=== PATIENT | female | born 1985 | race Caucasian/White ===

== ENCOUNTER 2016-10-26 01:00 | Emergency (ER) | payer MEDICAID ==
--- NOTE | 2016-10-26 01:30 | Emergency Department Record ---
History of Present Illness - General Chief Complaint: Cough Stated Complaint: CONGESTION, THINKS SHE HAS PNEUMONIA AGAIN Time Seen by Provider: 10/26/16 01:21 Source: Patient Mode of Arrival: Ambulatory Limitations: No limitations - History of Present Illness Initial Comments: 31 yo female presents with cough, sinus congestion, sore throat since Friday. She has green sinus drainage with pressure in the nasal and facial area. She has a sore throat but she is able to swallow, drink, and eat. She has a cough that is productive with green sputum. No blood. No fevers. No rash. No leg swelling. She has similar symptoms around time. No history of asthma. MD Complaint: Cough, Nasal congestion, Rhinorrhea, Sinus pain, Sore throat Onset/Timin -: Days(s) Severity: Mild Quality: Aching Consistency: Other Improves With: Nothing Worsens With: Other (coughing) Context: Sick contacts (contact with a family member with pneumonia) Associated Symptoms: Cough, Ear pain, Rhinorrhea, Sore throat Treatments Prior to Arrival: None - Related Data Home Medications Medication Instructions Recorded Confirmed Last Taken Albuterol Sulfate 2 mg INH Q6HR PRN 03/17/14 10/26/16 06/20/14 15:00 Montelukast Sodium [Singulair] 10 mg PO DAILY 03/17/14 10/26/16 06/20/14 10:00 Paroxetine HCl [Paroxetine HCl] 1 tab PO DAILY 03/17/14 10/26/16 06/20/14 10:00 Tiotropium [place] [Spiriva] 2 puff INH BID 03/17/14 10/26/16 06/20/14 10:00 Albuterol Sulfate 0.083% [Neb] 2.5 mg IH Q4HR PRN 08/17/14 10/26/16 Unknown Glycopyrrolate [Robinul] 1 mg PO DAILY 08/17/14 10/26/16 Unknown Mirtazapine [Remeron] 30 mg PO DAILY 04/13/15 10/26/16 Unknown Sucralfate [Carafate] 1 gm PO DAILY 04/13/15 10/26/16 Unknown Dicyclomine HCl [Bentyl] 10 mg PO DAILY 04/27/15 10/26/16 Unknown Ibuprofen [Motrin 600Mg] 600 mg PO QHS 11/13/15 10/26/16 Unknown Ropinirole HCl [Ropinirole HCl] 0.25 mg PO DAILY 11/13/15 10/26/16 Unknown Previous Rx's Medication Instructions Recorded Ondansetron [Zofran Odt] 4 mg PO NOW #10 tab.rapdis 12/21/14 Cetirizine HCl [Zyrtec] 10 mg PO DAILY #30 tab.chew 07/08/15 Prednisone [Prednisone 20Mg] 20 mg PO BID #10 tab 10/14/15 Ibuprofen [Motrin Liq] 400 mg PO Q8H #100 susp 08/12/16 Amoxicillin [Amoxil] 6 ml PO BID #120 ml 10/26/16 Benzonatate [Tessalon Perles] 1 cap PO Q8H PRN #20 cap 10/26/16 Prednisolone 15Mg/5Ml [Prelone 10 ml PO DAILY #50 ml 10/26/16 15Mg/5Ml] Allergies Allergy/AdvReac Type Severity Reaction Status Date / Time azithromycin Allergy HIVES Verified 10/14/15 21:39 [From Zithromax Z-Deven] cephalexin monohydrate Allergy VOMITING Verified 10/24/14 21:03 [From Keflex] Fish Containing Products Allergy HIVES Verified 04/27/15 01:41 latex Allergy RASH Verified 10/24/14 21:03 peanut Allergy ALTERED Verified 10/24/14 21:03 MENTAL STATUS Penicillins Allergy RASH Verified 10/24/14 21:03 shellfish derived Allergy HIVES Verified 04/27/15 01:41 sulfamethoxazole Allergy RASH Verified 10/24/14 21:03 [From Bactrim] trimethoprim [From Bactrim] Allergy RASH Verified 10/24/14 21:03 Travel Screening - Travel/Exposure Within Last 30 Days Have you traveled within the last 30 days?: No - Travel/Exposure Within Last Year Have you traveled outside the [place] in the last year?: No - Additonal Travel Details Have you been exposed to anyone with a communicable illness?: No - Travel Symptoms Symptom Screening: None Review of Systems Constitutional: Reports: Malaise. Denies: Chills, Fever, Weakness Eyes: Denies: Eye discharge, Eye pain, Photophobia, Vision change ENT: Reports: Congestion, Ear pain, Throat pain Respiratory: Reports: Cough Cardiovascular: Reports: Chest pain (hurts to cough) Endocrine: Denies: Fatigue Gastrointestinal: Denies: Abdominal pain, Diarrhea, Nausea, Vomiting Genitourinary: Denies: Dysuria, Urgency Musculoskeletal: Denies: Arthralgia, Back pain, Joint swelling, Myalgia, Neck pain Skin: Denies: Bruising, Change in color, Rash Neurological: Reports: Headache (sinus pressure) Psychiatric: Denies: Anxiety Hematological/Lymphatic: Denies: Blood Clots, Easy bleeding, Easy bruising, Swollen glands Past Medical History - SOCIAL HISTORY Smoking Status: Never smoker Alcohol Use: None Drug Use: None - RESPIRATORY Hx Respiratory Disorders: Yes Hx Asthma: Yes - CARDIOVASCULAR Hx Cardio Disorders: Yes Hx Irregular Heartbeat: Yes Comment:: heart murmur - NEURO Hx Neuro Disorders: No - GI Hx GI Disorders: Yes Hx Celiac Disease: Yes Hx Reflux: Yes Comment:: cyst on spleen - Hx Genitourinary Disorders: No - ENDOCRINE Hx Endocrine Disorders: No - MUSCULOSKELETAL Hx Musculoskeletal Disorders: Yes Hx Fibromyalgia: Yes Comment:: RLS, had ruptured achilles and was on bedrest just before rafael time. - PSYCH Hx Psych Problems: No - HEMATOLOGY/ONCOLOGY Hx Hematology/Oncology Disorders: No Comment:: issues with red and white cells and platelets. Family Medical History Any Significant Family History?: No Hx Diabetes: Grandparents, Grandparents Physical Exam - General General Appearance: Alert, Oriented x3, Cooperative, No acute distress Limitations: No limitations - Head Head exam: Atraumatic, Normal inspection - Eye Eye exam: negative: Conjunctival injection, Periorbital swelling - ENT ENT exam: Mucous membranes moist, Normal orophraynx. negative: TM's normal bilaterally Ear exam: Normal external inspection. negative: External canal tenderness Nasal Exam: Discharge, Sinus tenderness. negative: Dried blood, Foreign body Mouth exam: Normal external inspection Teeth exam: Normal inspection. negative: Dental caries Throat exam: Tonsillar erythema. negative: Tonsillomegaly, Tonsillar exudate, R peritonsillar mass, L peritonsillar mass - Neck Neck exam: Normal inspection, Full ROM. negative: Tenderness - Respiratory Respiratory exam: Normal lung sounds bilaterally, Chest wall tenderness (tender anterior chest). negative: Accessory muscle use, Decreased breath sounds, Prolonged expiratory, Respiratory distress, Rhonchi, Stridor, Wheezes - Cardiovascular Cardiovascular Exam: Regular rate, Normal rhythm, Normal heart sounds - GI/Abdominal GI/Abdominal exam: negative: Soft, Tenderness - Rectal Rectal exam: Deferred - exam: Deferred - Extremities Extremities exam: Normal inspection, Full ROM, Normal capillary refill. negative: Pedal edema, Tenderness - Back Back exam: Reports: Normal inspection, Full ROM. Denies: Muscle spasm, Rash noted, Tenderness - Neurological Neurological exam: Alert, Normal gait, Oriented X3 - Psychiatric Psychiatric exam: Normal affect, Normal mood. negative: Agitated, Anxious - Skin Skin exam: Dry, Intact, Normal color, Warm. negative: Cyanosis, Diaphoretic, Erythema Course Vital Signs 10/26/16 01:08 Temperature 98.7 F Pulse Rate 95 H Respiratory 20 Rate Blood Pressure 109/63 Pulse Ox 100 - Reevaluation(s) Reevaluation #1: The chest XR was prelim read by me. No acute process. No infiltrate. RX provided for likely sinusitis with her thick nasal drainage and productive cough. No tachycardia or hypoxia. 10/26/16 01:43 Disposition Disposition: Discharge Clinical Impression: Bronchitis Disposition: Home, Self-Care Condition: (1) Good Instructions: Acute Bronchitis (ED) Additional Instructions: Call your doctor first of the week Return if worse or any new concern Use a humidifier at night. Prescriptions: Amoxicillin [Amoxil] 6 ml PO BID #120 ml Prednisolone 15Mg/5Ml [Prelone 15Mg/5Ml] 10 ml PO DAILY #50 ml Benzonatate [Tessalon Perles] 1 cap PO Q8H PRN #20 cap PRN Reason: Cough Forms: Patient Portal Access Time of Disposition: 01:45
[2016-10-26] MEDS: AMOXICILLIN 400 MG/5 ML ML PO ONE (01:49)
[2016-10-26] MEDS: BENZONATATE 100 MG CAPSULE PO ONE (01:50)
[2016-10-26] MEDS: AMOXICILLIN 500 MG TABLET PO ONE (01:52)
--- NOTE | 2016-10-31 07:12 | RADIOLOGY REPORT ---
EXAM: CHEST, TWO VIEWS HISTORY: PRODUCTIVE COUGH. CONGESTION. TECHNIQUE: Upright PA and lateral views of the chest were obtained. Comparison: Two view chest radiographic examination dated 10/14/15. FINDINGS: The cardiomediastinal silhouette is normal in size and configuration. The pulmonary vasculature is normal in caliber. Minimal biapical lung scarring redemonstrated. No new lung consolidation, costophrenic angle blunting or pneumothorax. There is again suggestion of mild lobulation of the left hemidiaphragm unchanged since 06/20/14. The osseous structures are intact. IMPRESSION: NO RADIOGRAPHIC EVIDENCE OF ACUTE CARDIOPULMONARY DISEASE. JOB NUMBER: [id number] [facility]
== END 2016-10-26 02:01 | disposition home or self-care (01) ==
LOC: ER 01:00
DX: J20.9 Acute bronchitis, unspecified (principal); J02.9 Acute pharyngitis, unspecified
CPT/HCPCS: 71020; 99283

== ENCOUNTER 2017-04-30 23:54 | Emergency (ER) | payer MEDICAID ==
[2017-05-01] MEDS ORDERED: IBUPROFEN 400 MG TABLET PO ONE (00:30)
--- NOTE | 2017-05-01 00:30 | Emergency Department Record ---
History of Present Illness - General Chief complaint: Extremity Problem Stated complaint: THUMB INJURY Time Seen by Provider: 05/01/17 00:25 Source: Patient Mode of Arrival: Ambulatory Limitations: No limitations - History of Present Illness MD Complaint: Extremity pain Onset/Timin -: Hour(s) Location: Left, Other Radiation: None Severity scale (1-10): 8 Consistency: Getting worse Improves with: Medication - Related Data Home Medications Medication Instructions Recorded Confirmed Last Taken Albuterol Sulfate 2 mg INH Q6HR PRN 03/17/14 05/01/17 06/20/14 15:00 Montelukast Sodium [Singulair] 10 mg PO DAILY 03/17/14 05/01/17 06/20/14 10:00 Paroxetine HCl [Paroxetine HCl] 1 tab PO DAILY 03/17/14 05/01/17 06/20/14 10:00 Tiotropium [place] [Spiriva] 2 puff INH BID 03/17/14 05/01/17 06/20/14 10:00 Albuterol Sulfate 0.083% [Neb] 2.5 mg IH Q4HR PRN 08/17/14 05/01/17 Unknown Glycopyrrolate [Robinul] 1 mg PO DAILY 08/17/14 05/01/17 Unknown Mirtazapine [Remeron] 30 mg PO DAILY 04/13/15 05/01/17 Unknown Sucralfate [Carafate] 1 gm PO DAILY 04/13/15 05/01/17 Unknown Dicyclomine HCl [Bentyl] 10 mg PO DAILY 04/27/15 05/01/17 Unknown Ibuprofen [Motrin 600Mg] 600 mg PO QHS 11/13/15 05/01/17 Unknown Ropinirole HCl [Ropinirole HCl] 0.25 mg PO DAILY 11/13/15 05/01/17 Unknown Previous Rx's Medication Instructions Recorded Ondansetron [Zofran Odt] 4 mg PO NOW #10 tab.rapdis 12/21/14 Cetirizine HCl [Zyrtec] 10 mg PO DAILY #30 tab.chew 07/08/15 Prednisone [Prednisone 20Mg] 20 mg PO BID #10 tab 10/14/15 Amoxicillin [Amoxil] 6 ml PO BID #120 ml 10/26/16 Benzonatate [Tessalon Perles] 1 cap PO Q8H PRN #20 cap 10/26/16 Prednisolone 15Mg/5Ml [Prelone 10 ml PO DAILY #50 ml 10/26/16 15Mg/5Ml] Allergies Allergy/AdvReac Type Severity Reaction Status Date / Time azithromycin Allergy HIVES Verified 10/14/15 21:39 [From Zithromax Z-Deven] cephalexin monohydrate Allergy VOMITING Verified 10/24/14 21:03 [From Keflex] Fish Containing Products Allergy HIVES Verified 04/27/15 01:41 latex Allergy RASH Verified 10/24/14 21:03 peanut Allergy ALTERED Verified 10/24/14 21:03 MENTAL STATUS Penicillins Allergy RASH Verified 10/24/14 21:03 shellfish derived Allergy HIVES Verified 04/27/15 01:41 sulfamethoxazole Allergy RASH Verified 10/24/14 21:03 [From Bactrim] trimethoprim [From Bactrim] Allergy RASH Verified 10/24/14 21:03 Travel Screening - Travel/Exposure Within Last 30 Days Have you traveled within the last 30 days?: No Review of Systems Reviewed: No additional complaints except as noted below Constitutional: Reports: As per HPI. Denies: Chills, Fever, Malaise, Night sweats, Weakness, Weight change Eyes: Reports: As per HPI. Denies: Eye discharge, Eye pain, Photophobia, Vision change ENT: Reports: As per HPI. Denies: Congestion, Dental pain, Ear pain, Epistaxis , Hearing loss, Throat pain Respiratory: Reports: As per HPI. Denies: Cough, Dyspnea, Hemoptysis, Stridor, Wheezes Cardiovascular: Reports: As per HPI. Denies: Arrhythmia, Chest pain, Dyspnea on exertion, Edema, Murmurs, Orthopnea, Palpitations, Paroxysmal nocturnal dyspnea, Rheumatic Fever, Syncope Endocrine: Reports: As per HPI. Denies: Fatigue, Heat or cold intolerance, Polydipsia, Polyuria Gastrointestinal: Reports: As per HPI. Denies: Abdominal pain, Constipation, Diarrhea, Hematemesis, Hematochezia, Melena, Nausea, Vomiting Genitourinary: Reports: As per HPI. Denies: Abnormal menses, Discharge, Dyspareunia, Dysuria, Frequency, Hematuria, Incontinence, Retention, Urgency Musculoskeletal: Reports: As per HPI. Denies: Arthralgia, Back pain, Gout, Joint swelling, Myalgia, Neck pain Skin: Reports: As per HPI. Denies: Bruising, Change in color, Change in hair/ nails, Lesions, Pruritus, Rash Neurological: Reports: As per HPI. Denies: Abnormal gait, Confusion, Headache, Numbness, Paresthesias, Seizure, Tingling, Tremors, Vertigo, Weakness Psychiatric: Reports: As per HPI. Denies: Anxiety, Auditory hallucinations, Depression, Homicidal thoughts, Suicidal thoughts, Visual hallucinations Hematological/Lymphatic: Reports: As per HPI. Denies: Anemia, Blood Clots, Easy bleeding, Easy bruising, Swollen glands Past Medical History - SOCIAL HISTORY Smoking Status: Never smoker Alcohol Use: None Drug Use: None - RESPIRATORY Hx Respiratory Disorders: Yes Hx Asthma: Yes - CARDIOVASCULAR Hx Cardio Disorders: Yes Hx Irregular Heartbeat: Yes Comment:: heart murmur - NEURO Hx Neuro Disorders: No - GI Hx GI Disorders: Yes Hx Celiac Disease: Yes Hx Reflux: Yes Comment:: cyst on spleen - Hx Genitourinary Disorders: No - ENDOCRINE Hx Endocrine Disorders: No - MUSCULOSKELETAL Hx Musculoskeletal Disorders: Yes Hx Fibromyalgia: Yes Comment:: RLS, had ruptured achilles and was on bedrest just before rafael time. - PSYCH Hx Psych Problems: No - HEMATOLOGY/ONCOLOGY Hx Hematology/Oncology Disorders: No Comment:: issues with red and white cells and platelets. Family Medical History Any Significant Family History?: Yes Hx Diabetes: Grandparents, Grandparents Physical Exam - General General Appearance: Alert, Oriented x3, Cooperative, No acute distress - Head Head exam: Normal inspection - Eye Eye exam: Normal appearance, PERRL, EOMI Pupils: Normal accommodation - ENT ENT exam: Normal exam, Mucous membranes moist, Normal external ear exam, Normal orophraynx Ear exam: Normal external inspection. negative: External canal tenderness Nasal Exam: Normal inspection. negative: Discharge, Sinus tenderness Mouth exam: Normal external inspection, Tongue normal Teeth exam: Normal inspection. negative: Dental caries Throat exam: Normal inspection. negative: Tonsillar erythema, Tonsillar exudate - Neck Neck exam: Normal inspection, Full ROM. negative: Tenderness - Respiratory Respiratory exam: Normal lung sounds bilaterally. negative: Respiratory distress - Cardiovascular Cardiovascular Exam: Regular rate, Normal rhythm, Normal heart sounds - GI/Abdominal GI/Abdominal exam: Soft, Normal bowel sounds. negative: Tenderness - Rectal Rectal exam: Deferred - exam: Deferred - Extremities Extremities exam: Normal capillary refill, Tenderness. negative: Full ROM - Back Back exam: Reports: Normal inspection, Full ROM. Denies: Muscle spasm, Rash noted, Tenderness - Neurological Neurological exam: Alert, CN II-XII intact, Normal gait, Oriented X3 - Psychiatric Psychiatric exam: Normal affect, Normal mood - Skin Skin exam: Dry, Intact, Normal color, Warm Course Vital Signs 04/30/17 23:59 Temperature 99 F Pulse Rate [ 92 H Pulse Ox Probe] Respiratory 16 Rate Blood Pressure 111/65 [Left Arm] Pulse Ox 98 Disposition Disposition: Discharge Clinical Impression: Left thumb sprain Qualifiers: Encounter type: initial encounter Sprain of finger site: unspecified site Qualified Code(s): S63.602A - Unspecified sprain of left thumb, initial encounter Disposition: Home, Self-Care Condition: (1) Good Instructions: Skier's Thumb (ED), Finger Sprain (ED) Additional Instructions: follow up with family doctor. return sooner if worse. ice and elevate Forms: Patient Portal Access Quality - Quality Measures Quality Measures: N/A - Blood Pressure Screening Blood Pressure Classification: Normal BP Reading Systolic Measurement: 111 Diastolic Measurement: 65 Screening for High Blood Pressure: < Normal BP, F/U Not Required > [[id number]] Normal BP Follow-up Interventions: No follow-up required
[2017-05-01] MEDS ORDERED: IBUPROFEN 100 MG/5 ML SUSP PO ONE (00:41)
--- NOTE | 2017-05-01 12:37 | RADIOLOGY REPORT ---
EXAM: LEFT HAND HISTORY: PAIN. TECHNIQUE: Three views of the left hand were obtained. Comparison: None. Encounter: Initial. FINDINGS: Negative for an acute fracture or dislocation. Well corticated ossific density near the IP joint of the thumb likely relates to accessory ossicle. The soft tissues are unremarkable. IMPRESSION: NEGATIVE LEFT HAND EXAMINATION. JOB NUMBER: [id number] [facility]
== END 2017-05-01 00:46 | disposition home or self-care (01) ==
LOC: ER 23:54
DX: S63.602A Unspecified sprain of left thumb, initial encounter (principal); W23.0XXA Caught, crushed, jammed, or pinched between moving objects, initial encounter; Y93.61 Activity, american tackle football
CPT/HCPCS: 99283